=== PATIENT | female | born 1995 | race Two or more races ===

== ENCOUNTER 2017-08-21 14:14 | Emergency (ER) | payer MEDICAID ==
[~2017-08-21] VITALS: Ht 157.5 cm; Wt 72.1 kg
[2017-08-21 16:28] LABS: Urine Bacteria NONE SEEN /hpf (None Seen); Urine Blood Negative /uL (Negative); Urine Mucus FEW (None Seen); Urine Specific Gravity 1.016 (1.001-1.035); Urine WBC 2 /hpf (0 - 5)
[2017-08-21 19:15] VITALS: BP 102/54
== END 2017-08-21 20:15 | disposition home or self-care (01) ==
LOC: ER 14:14
DX: O36.4XX0 Maternal care for intrauterine death, not applicable or unspecified (principal); Z3A.01 Less than 8 weeks gestation of pregnancy
CPT/HCPCS: 36415; 76801; 76817; 81001; 84702

== ENCOUNTER 2017-11-06 09:36 | Emergency (ER) | payer MEDICAID ==
[~2017-11-06] VITALS: Ht 160 cm; Wt 72.6 kg
[2017-11-06 12:11] LABS: Urine Bacteria FEW /hpf (None Seen); Urine Blood 2+ /uL (Negative); Urine Specific Gravity 1.003 (1.001-1.035); Urine WBC 6 /hpf (0 - 5)
[2017-11-06 12:44] VITALS: BP 104/76
== END 2017-11-06 12:45 | disposition home or self-care (01) ==
LOC: ER 09:36
DX: O20.9 Hemorrhage in early pregnancy, unspecified (principal); O21.9 Vomiting of pregnancy, unspecified; Z3A.01 Less than 8 weeks gestation of pregnancy
CPT/HCPCS: 36415; 76801; 76817; 81001; 84702